=== PATIENT | male | born 1980 | race Caucasian/White ===

== ENCOUNTER 2017-05-20 21:04 | Emergency (ER) | payer OTHER ==
[2017-05-20 22:04] LABS: BASOPHIL % 0.1 % (0-2); PLATELET COUNT 139 x10^3mcL (130-400); RED CELL DISTRIBUTION WIDTH 16.7 % (11.5-14.5)
[2017-05-20 22:10] LABS: CALCIUM 8.6 mg/dL (8.5-10.1); CARBON DIOXIDE 24.8 mmol/L (21-32); CHLORIDE SERUM 93 mmol/L (98-107); CREATININE SERUM 0.7 mg/dL (0.7-1.3); GFR1 > 60 mL/min; GLUCOSE SERUM 403 mg/dL (74-106); POTASSIUM SERUM 3.7 mmol/L (3.5-5.1); SODIUM SERUM 132 mmol/L (136-145)
[2017-05-20 22:15] LABS: ALKALINE PHOSPHATASE 211 U/L (46-116); ALT/SGPT 41 U/L (16-63); AST/SGOT 200 U/L (15-37); BILIRUBIN TOTAL 2.66 mg/dL (0.20-1.00); MAGNESIUM 1.7 mg/dL (1.8-2.4); PHOSPHOROUS 3.5 mg/dL (2.5-4.9)
[2017-05-20 22:16] LABS: ALBUMIN 2.4 g/dL (3.4-5.0); TOTAL PROTEIN, SERUM 9.8 g/dL (6.4-8.2)
[2017-05-21 01:12] VITALS: BP 191/99
== END 2017-05-21 01:12 | disposition home or self-care (01) ==
LOC: ED 21:04
PROVIDERS: Emergency Medicine
DX: G62.9 Polyneuropathy, unspecified (principal); F10.10 Alcohol abuse, uncomplicated; R73.9 Hyperglycemia, unspecified
CPT/HCPCS: 82962; J1815; J3411; J3475; J3490; J7030

== ENCOUNTER 2018-11-12 16:05 | Inpatient (IN) | payer MEDICAID, OTHER ==
[~2018-11-12] VITALS: Ht 175.3 cm; Wt 140.0 kg
[2018-11-12 16:49] LABS: BASOPHIL % 0.1 % (0-2)
[2018-11-12 16:50] LABS: PLATELET COUNT 94 x10^3mcL (130-400); RED CELL DISTRIBUTION WIDTH 21.9 % (11.5-14.5)
[2018-11-12 17:12] LABS: rbc morphology (normal/abnorm) ABNORMAL (NORMAL)
[2018-11-12 17:16] LABS: FREE T4 1.25 ng/dL (0.76-1.46); FREE THYROXINE INDEX 1.7 ug/dL (1.4-4.5); T3 TOTAL 0.67 ng/mL; T4(THYROXINE) 4.4 ug/dL (4.7-13.3)
[2018-11-12 17:30] LABS: microscopic required? YES; urine erythrocyte TRACE (NEGATIVE)
[2018-11-12 17:36] LABS: CK-MB 1.3 ng/mL (0-3.6)
[2018-11-12 17:43] LABS: ALKALINE PHOSPHATASE 88 U/L (46-116); ALT/SGPT 107 U/L (16-63); AST/SGOT 147 U/L (15-37); CALCIUM 8.4 mg/dL (8.5-10.1); CARBON DIOXIDE 17.7 mmol/L (21-32); CHLORIDE SERUM 102 mmol/L (98-107); CREATININE SERUM 2.3 mg/dL (0.7-1.3); GFR1 34 mL/min; GLUCOSE SERUM 129 mg/dL (74-106); POTASSIUM SERUM 3.1 mmol/L (3.5-5.1); SODIUM SERUM 134 mmol/L (136-145); TOTAL PROTEIN, SERUM 6.8 g/dL (6.4-8.2)
[2018-11-12 17:44] LABS: AMPHETAMINE QUAL UR NONE DETECTED (See below)
[2018-11-12 17:48] LABS: ALBUMIN 1.7 g/dL (3.4-5.0); BILIRUBIN TOTAL 31.5 mg/dL (0.20-1.00)
[2018-11-12 17:54] LABS: ERYTHROCYTE SED RATE 94 mm/hr (0-15)
[2018-11-12 18:30] VITALS: BP 106/58
[2018-11-12 19:01] LABS: PHOSPHOROUS 3.4 mg/dL (2.5-4.9)
[2018-11-12 19:18] LABS: MAGNESIUM 2.1 mg/dL (1.8-2.4)
[2018-11-12] MEDS ORDERED: LACTULOSE20 GM/30 M PO (19:22)
[2018-11-12] MEDS ORDERED: PROPRANOLOL HCL10 MG PO (19:22)
[2018-11-12] MEDS ORDERED: ALDACTONE25 MG PO (19:22)
[2018-11-12] MEDS ORDERED: PROA PO (19:22)
[2018-11-12] MEDS ORDERED: FUROSEMIDE20 MG PO (19:23)
[2018-11-12] MEDS ORDERED: BASAGLAR K100 UNIT/1 SQ (19:23)
[2018-11-12] MEDS ORDERED: HUMALOG JU100 UNIT/1 SQ (19:23)
[2018-11-12 19:29] LABS: BILIRUBIN DIRECT 23.4 mg/dL (0.0-0.2)
[2018-11-12 19:38] LABS: BILIRUBIN TOTAL 31.5 mg/dL (0.20-1.00)
[2018-11-12 19:40] LABS: CHOLESTEROL/HDL RATIO 1.3
[2018-11-12 19:58] LABS: ALKALINE PHOSPHATASE 88 U/L (46-116); LACTIC DEHYDROGENASE (LDH) 330 U/L (100-190)
[2018-11-12 20:10] VITALS: BP 83/43
[2018-11-12 20:55] VITALS: BP 90/50
[2018-11-12 21:20] VITALS: BP 100/52
[2018-11-12 22:37] LABS: microscopic required? YES; urine erythrocyte TRACE (NEGATIVE)
[2018-11-12 23:05] VITALS: BP 91/44
[2018-11-13] VITALS (18 sets, daily range): BP systolic 86–139; BP diastolic 36–69
[2018-11-13 05:39] LABS: CALCIUM 7.6 mg/dL (8.5-10.1); CARBON DIOXIDE 16.8 mmol/L (21-32); CREATININE SERUM 2.7 mg/dL (0.7-1.3); MAGNESIUM 1.8 mg/dL (1.8-2.4); PHOSPHOROUS 4.5 mg/dL (2.5-4.9); POTASSIUM SERUM 3.1 mmol/L (3.5-5.1)
[2018-11-13 05:47] LABS: PLATELET COUNT 102 x10^3mcL (130-400)
[2018-11-13 05:48] LABS: RED CELL DISTRIBUTION WIDTH 20.8 % (11.5-14.5)
[2018-11-13 06:25] LABS: MONOCYTE 8 % (0-7); SEGMENTED NEUTROPHILS 70 % (37-75)
[2018-11-13 06:26] LABS: BAND NEUTROPHIL 8 % (0-10); PROMYELOCYTE 1 % (0-0)
[2018-11-13 06:27] LABS: acanthocyte (spur cell) 2+; rbc morphology (normal/abnorm) ABNORMAL (NORMAL)
[2018-11-13 17:29] LABS: CALCIUM 7.6 mg/dL (8.5-10.1); CREATININE SERUM 3.4 mg/dL (0.7-1.3); POTASSIUM SERUM 3.8 mmol/L (3.5-5.1)
[2018-11-13 17:33] LABS: ALBUMIN 1.2 g/dL (3.4-5.0); TOTAL PROTEIN, SERUM 5.1 g/dL (6.4-8.2)
[2018-11-13 17:34] LABS: BILIRUBIN TOTAL 23.86 mg/dL (0.20-1.00)
[2018-11-13 18:14] LABS: APPEARANCE FLUID TURBID; COLOR FLUID YELLOW; RBC FLUID 582 /cumm; SOURCE FLUID ASCITES; WBC FLUID 231 /cumm
[2018-11-13 18:15] LABS: LYMPHOCYTE FLUID 34 %; MONOCYTE FLUID 52 %
[2018-11-13 20:07] LABS: BAND NEUTROPHIL 8 % (0-10); MONOCYTE 10 % (0-7); SEGMENTED NEUTROPHILS 74 % (37-75)
[2018-11-13 20:09] LABS: rbc morphology (normal/abnorm) ABNORMAL (NORMAL)
[2018-11-13 20:10] LABS: PLATELET MORPHOLOGY PLATELETS DECREASED; acanthocyte (spur cell) 2+
[2018-11-13 20:16] LABS: RED CELL DISTRIBUTION WIDTH 20.3 % (11.5-14.5)
[2018-11-13 20:17] LABS: PLATELET COUNT 144 x10^3mcL (130-400)
[2018-11-13 22:53] LABS: acanthocyte (spur cell) 2+; rbc morphology (normal/abnorm) ABNORMAL (NORMAL)
[2018-11-14] VITALS (17 sets, daily range): BP systolic 101–118; BP diastolic 40–60
[2018-11-14 05:14] LABS: PLATELET COUNT 122 x10^3mcL (130-400); RED CELL DISTRIBUTION WIDTH 20.1 % (11.5-14.5)
[2018-11-14 05:42] LABS: CALCIUM 8.2 mg/dL (8.5-10.1); CARBON DIOXIDE 15.6 mmol/L (21-32); CREATININE SERUM 3.8 mg/dL (0.7-1.3); MAGNESIUM 1.8 mg/dL (1.8-2.4); PHOSPHOROUS 6.2 mg/dL (2.5-4.9); POTASSIUM SERUM 3.5 mmol/L (3.5-5.1)
[2018-11-14 05:44] LABS: BAND NEUTROPHIL 5 % (0-10); MONOCYTE 11 % (0-7); SEGMENTED NEUTROPHILS 65 % (37-75); rbc morphology (normal/abnorm) ABNORMAL (NORMAL)
[2018-11-14 05:45] LABS: PLATELET MORPHOLOGY PLATELETS DECREASED; acanthocyte (spur cell) 2+
[2018-11-15] VITALS (18 sets, daily range): BP systolic 100–116; BP diastolic 40–60
[2018-11-15 05:35] LABS: BASOPHIL % 0.2 % (0-2)
[2018-11-15 05:41] LABS: PLATELET COUNT 54 x10^3mcL (130-400)
[2018-11-15 05:43] LABS: RED CELL DISTRIBUTION WIDTH 22.3 % (11.5-14.5)
[2018-11-15 05:59] LABS: BILIRUBIN DIRECT 20.26 mg/dL (0.0-0.2); CARBON DIOXIDE 18.1 mmol/L (21-32); MAGNESIUM 1.6 mg/dL (1.8-2.4)
[2018-11-15 06:16] LABS: ALBUMIN 2.3 g/dL (3.4-5.0); BILIRUBIN TOTAL 28.8 mg/dL (0.20-1.00); POTASSIUM SERUM 2.5 mmol/L (3.5-5.1); TOTAL PROTEIN, SERUM 5.1 g/dL (6.4-8.2)
[2018-11-15 06:17] LABS: CREATININE SERUM 4.2 mg/dL (0.7-1.3); rbc morphology (normal/abnorm) ABNORMAL (NORMAL)
[2018-11-15 06:20] LABS: acanthocyte (spur cell) 1+
[2018-11-15 13:50] LABS: BASOPHIL % 0.3 % (0-2)
[2018-11-15 13:52] LABS: PLATELET COUNT 57 x10^3mcL (130-400)
[2018-11-15 14:18] LABS: burr cell (echinocyte) 1+; ovalocyte/elliptocyte 1+; rbc morphology (normal/abnorm) ABNORMAL (NORMAL); target cell (codocyte) 1+
[2018-11-16] VITALS (14 sets, daily range): BP systolic 98–111; BP diastolic 43–53
[2018-11-16 05:48] LABS: BASOPHIL % 0.3 % (0-2); RED CELL DISTRIBUTION WIDTH 24.1 % (11.5-14.5)
[2018-11-16 05:49] LABS: PLATELET COUNT 58 x10^3mcL (130-400)
[2018-11-16 05:59] LABS: CALCIUM 8.2 mg/dL (8.5-10.1); CARBON DIOXIDE 19.7 mmol/L (21-32); MAGNESIUM 1.9 mg/dL (1.8-2.4); PHOSPHOROUS 5.3 mg/dL (2.5-4.9)
[2018-11-16 06:01] LABS: CREATININE SERUM 4.4 mg/dL (0.7-1.3)
[2018-11-16 06:03] LABS: POTASSIUM SERUM 2.9 mmol/L (3.5-5.1)
[2018-11-17] VITALS (16 sets, daily range): BP systolic 98–127; BP diastolic 44–103
[2018-11-17 05:29] LABS: BASOPHIL % 1.2 % (0-2); PLATELET COUNT 56 x10^3mcL (130-400); RED CELL DISTRIBUTION WIDTH 26.1 % (11.5-14.5)
[2018-11-17 05:45] LABS: CALCIUM 8.5 mg/dL (8.5-10.1); CARBON DIOXIDE 23.7 mmol/L (21-32); CREATININE SERUM 3.8 mg/dL (0.7-1.3); MAGNESIUM 1.8 mg/dL (1.8-2.4); PHOSPHOROUS 4.2 mg/dL (2.5-4.9)
[2018-11-17 06:04] LABS: POTASSIUM SERUM 2.7 mmol/L (3.5-5.1)
[2018-11-17 15:05] LABS: CALCIUM 8.1 mg/dL (8.5-10.1); CREATININE SERUM 3.7 mg/dL (0.7-1.3)
[2018-11-17 21:33] LABS: CARBON DIOXIDE 25.4 mmol/L (21-32); CREATININE SERUM 3.7 mg/dL (0.7-1.3); POTASSIUM SERUM 4.2 mmol/L (3.5-5.1)
[2018-11-18] VITALS (18 sets, daily range): BP systolic 88–117; BP diastolic 42–65
[2018-11-18 05:10] LABS: CALCIUM 8.2 mg/dL (8.5-10.1); CARBON DIOXIDE 25.2 mmol/L (21-32); CREATININE SERUM 3.8 mg/dL (0.7-1.3); MAGNESIUM 1.8 mg/dL (1.8-2.4)
[2018-11-18 05:12] LABS: POTASSIUM SERUM 2.9 mmol/L (3.5-5.1)
[2018-11-18 05:14] LABS: BASOPHIL % 0.2 % (0-2)
[2018-11-18 05:17] LABS: RED CELL DISTRIBUTION WIDTH 26.5 % (11.5-14.5)
[2018-11-18 05:19] LABS: PLATELET COUNT 45 x10^3mcL (130-400)
[2018-11-18 12:38] LABS: CALCIUM 8.6 mg/dL (8.5-10.1); CARBON DIOXIDE 26.1 mmol/L (21-32); CREATININE SERUM 3.8 mg/dL (0.7-1.3); POTASSIUM SERUM 3.1 mmol/L (3.5-5.1)
[2018-11-19] VITALS (18 sets, daily range): BP systolic 84–121; BP diastolic 43–93
[2018-11-19 05:38] LABS: BASOPHIL % 0.5 % (0-2)
[2018-11-19 05:45] LABS: RED CELL DISTRIBUTION WIDTH 26.9 % (11.5-14.5)
[2018-11-19 05:46] LABS: PLATELET COUNT 47 x10^3mcL (130-400)
[2018-11-19 05:51] LABS: CALCIUM 8.4 mg/dL (8.5-10.1); CARBON DIOXIDE 24.3 mmol/L (21-32); CREATININE SERUM 3.8 mg/dL (0.7-1.3); MAGNESIUM 2.1 mg/dL (1.8-2.4); PHOSPHOROUS 4.2 mg/dL (2.5-4.9); POTASSIUM SERUM 3.1 mmol/L (3.5-5.1)
[2018-11-19 06:08] LABS: acanthocyte (spur cell) 1+; rbc morphology (normal/abnorm) ABNORMAL (NORMAL)
[2018-11-20] VITALS (17 sets, daily range): BP systolic 92–112; BP diastolic 36–56
[2018-11-20 04:44] LABS: BASOPHIL % 0.6 % (0-2)
[2018-11-20 04:49] LABS: PLATELET COUNT 55 x10^3mcL (130-400)
[2018-11-20 04:51] LABS: RED CELL DISTRIBUTION WIDTH 27.2 % (11.5-14.5)
[2018-11-20 05:00] LABS: acanthocyte (spur cell) 1+; rbc morphology (normal/abnorm) ABNORMAL (NORMAL)
[2018-11-20 05:05] LABS: CALCIUM 8.3 mg/dL (8.5-10.1); CARBON DIOXIDE 22.3 mmol/L (21-32); MAGNESIUM 2.1 mg/dL (1.8-2.4); PHOSPHOROUS 4.3 mg/dL (2.5-4.9); POTASSIUM SERUM 3.5 mmol/L (3.5-5.1)
[2018-11-20 05:42] LABS: ALBUMIN 1.8 g/dL (3.4-5.0); TOTAL PROTEIN, SERUM 5.7 g/dL (6.4-8.2)
[2018-11-20 05:47] LABS: BILIRUBIN TOTAL 26.6 mg/dL (0.20-1.00)
[2018-11-21] VITALS (19 sets, daily range): BP systolic 95–114; BP diastolic 40–53
[2018-11-21 05:44] LABS: PLATELET COUNT 54 x10^3mcL (130-400)
[2018-11-21 05:48] LABS: CALCIUM 8.4 mg/dL (8.5-10.1); CARBON DIOXIDE 21.6 mmol/L (21-32); PHOSPHOROUS 4.9 mg/dL (2.5-4.9); POTASSIUM SERUM 3.6 mmol/L (3.5-5.1)
[2018-11-21 05:50] LABS: CREATININE SERUM 4.3 mg/dL (0.7-1.3)
[2018-11-21 06:02] LABS: MONOCYTE 9 % (0-7); SEGMENTED NEUTROPHILS 65 % (37-75)
[2018-11-21 06:03] LABS: BAND NEUTROPHIL 13 % (0-10); BASOPHIL 0 % (0-2); rbc morphology (normal/abnorm) ABNORMAL (NORMAL)
[2018-11-21 06:05] LABS: burr cell (echinocyte) 1+
[2018-11-22] VITALS (9 sets, daily range): BP systolic 80–111; BP diastolic 36–50; Ht 175.3 cm; Wt 140.0 kg
[2018-11-22 05:26] LABS: BASOPHIL % 0.2 % (0-2)
[2018-11-22 05:27] LABS: PLATELET COUNT 71 x10^3mcL (130-400); RED CELL DISTRIBUTION WIDTH 27.5 % (11.5-14.5)
[2018-11-22 05:35] LABS: CALCIUM 8.1 mg/dL (8.5-10.1); CARBON DIOXIDE 20.9 mmol/L (21-32); PHOSPHOROUS 5.6 mg/dL (2.5-4.9); POTASSIUM SERUM 3.8 mmol/L (3.5-5.1)
[2018-11-22 05:36] LABS: CREATININE SERUM 4.8 mg/dL (0.7-1.3)
[2018-11-22 05:55] LABS: rbc morphology (normal/abnorm) ABNORMAL (NORMAL)
[2018-11-23] VITALS (7 sets, daily range): BP systolic 93–116; BP diastolic 27–52
[2018-11-23 05:54] LABS: BASOPHIL % 0.2 % (0-2)
[2018-11-23 05:57] LABS: RED CELL DISTRIBUTION WIDTH 26.6 % (11.5-14.5)
[2018-11-23 05:58] LABS: PLATELET COUNT 59 x10^3mcL (130-400)
[2018-11-23 05:59] LABS: rbc morphology (normal/abnorm) ABNORMAL (NORMAL)
[2018-11-23 06:01] LABS: CALCIUM 8.5 mg/dL (8.5-10.1); CARBON DIOXIDE 16.8 mmol/L (21-32); MAGNESIUM 2.1 mg/dL (1.8-2.4); PHOSPHOROUS 7.2 mg/dL (2.5-4.9); POTASSIUM SERUM 4.3 mmol/L (3.5-5.1)
[2018-11-23 06:03] LABS: CREATININE SERUM 5.8 mg/dL (0.7-1.3)
[2018-11-23 11:59] LABS: TRIGLYCERIDES 135 mg/dL (<150)
[2018-11-23 12:16] LABS: HDL CHOLESTEROL 8 mg/dL (40-60)
[2018-11-23 12:18] LABS: CHOLESTEROL/HDL RATIO 6.2
[2018-11-23 12:19] LABS: CHOLESTEROL < 50 mg/dL (<200)
[2018-11-24 05:41] VITALS: BP 81/32
[2018-11-24 08:00] VITALS: BP 83/30
[2018-11-24 12:10] VITALS: BP 82/23
[2018-11-24 16:30] VITALS: BP 70/19
[2018-11-24 20:57] VITALS: BP 70/14
== END 2018-11-25 04:18 | disposition expired | DRG 720 ==
LOC: ED 16:05 → IC 17:38 → DU 17:38 → IC 20:39 → DU 11-23 10:47
PROVIDERS: Family Medicine; Internal Medicine Nephrology; Specialist; ADMIT Internal Medicine
PROC: 05HM33Z Insertion of Infusion Device into Right Internal Jugular Vein, Percutaneous Approach (ICD-10-PCS; principal; 2018-11-12)
PROC: B543ZZA Ultrasonography of Right Jugular Veins, Guidance (ICD-10-PCS; 2018-11-12)
PROC: 5A1955Z Respiratory Ventilation, Greater than 96 Consecutive Hours (ICD-10-PCS; 2018-11-12)
PROC: 0BH17EZ Insertion of Endotracheal Airway into Trachea, Via Natural or Artificial Opening (ICD-10-PCS; 2018-11-12)
PROC: 0W3P8ZZ Control Bleeding in Gastrointestinal Tract, Via Natural or Artificial Opening Endoscopic (ICD-10-PCS; 2018-11-13)
PROC: 30233N1 Transfusion of Nonautologous Red Blood Cells into Peripheral Vein, Percutaneous Approach (ICD-10-PCS; 2018-11-15)
DX: A41.9 Sepsis, unspecified organism (principal); J96.00 Acute respiratory failure, unspecified whether with hypoxia or hypercapnia; K72.00 Acute and subacute hepatic failure without coma; E43 Unspecified severe protein-calorie malnutrition; J15.6 Pneumonia due to other Gram-negative bacteria; K76.7 Hepatorenal syndrome; N17.0 Acute kidney failure with tubular necrosis; E11.9 Type 2 diabetes mellitus without complications; D50.0 Iron deficiency anemia secondary to blood loss (chronic); K65.2 Spontaneous bacterial peritonitis; E87.2 Acidosis; R65.20 Severe sepsis without septic shock; K70.31 Alcoholic cirrhosis of liver with ascites; F15.10 Other stimulant abuse, uncomplicated; K22.8 Other specified diseases of esophagus; I10 Essential (primary) hypertension; F10.20 Alcohol dependence, uncomplicated; Z66 Do not resuscitate; Z51.5 Encounter for palliative care; Y90.9 Presence of alcohol in blood, level not specified; Z68.41 Body mass index [BMI] 40.0-44.9, adult
CPT/HCPCS: 36600; 43235; 49083; 82962; 83880; 84439; 87046; 87046-59; 92526-GN; 92610; A4628; C9113; G0480; J0171; J0610; J0696; J1200; J1610; J1630; J1642; J1644; J1940; J2250; J2270; J2310; J2354; J2370; J2543; J2704; J3010; J3370; J3475; J3480; J3490; J7030; J7040; J7050; J7060; J7620; P9016; P9047; Q0092; Q0163